=== PATIENT | female | born 1940 | race Caucasian/White ===

== ENCOUNTER 2017-06-01 15:34 | Inpatient (IN) | payer MEDICARE ==
[~2017-06-01] VITALS: Ht 157.5 cm; Wt 71.6 kg
[2017-06-01] MEDS ORDERED: ASPI-496 PO (15:54)
[2017-06-01 16:10] LABS: ASPARTATE AMINO TRANSFERASE 17 U/L (15-37); BLOOD UREA NITROGEN 20 mg/dL (7-18)
[2017-06-01 16:16] LABS: IS PT STATUS REG ER OR PRE ER? YES
[2017-06-01] MEDS ORDERED: ASPIRIN 325 MG TABLET PO STA (16:52)
[2017-06-01] MEDS ORDERED: ASPIRIN 325 MG TABLET ONE (17:06)
[2017-06-01] MEDS ORDERED: ENALAPRILAT 1.25 MG/ML, 2ML IVPush PRN ×2 (19:00→21:00)
[2017-06-01] MEDS ORDERED: BISACODYL 10 MG SUPP PR PRN (19:00)
[2017-06-01] MEDS ORDERED: ONDANSETRON 2MG/ML, 2ML IVPush PRN (19:00)
[2017-06-01] MEDS ORDERED: morphine SULFATE 10 MG/ML, 1ML IVPush PRN (19:00)
[2017-06-01] MEDS ORDERED: TEMAZEPAM 15 MG CAPSULE PO PRN (19:00)
[2017-06-01 19:15] VITALS: BP 176/102
[2017-06-01 20:00] VITALS: BP 176/102
[2017-06-01] MEDS ORDERED: ENALAPRILAT 1.25 MG/ML, 2ML ONE (20:26)
[2017-06-01 21:55] VITALS: BP 168/92
[2017-06-02] MEDS ORDERED: ENALAPRILAT 1.25 MG/ML, 2ML IVPush PRN (01:00)
[2017-06-02 02:00] VITALS: BP 167/99
[2017-06-02] MEDS: HEPARIN 5,000 UNITS/ML, 1ML SQ SCH ×3 (02:01→18:15)
[2017-06-02 02:30] LABS: PATH.CAST-FLAG NOT PRESENT; SPERM-FLAG NOT PRESENT; SRC-FLAG NOT PRESENT; XTAL-FLAG NOT PRESENT; YLC-FLAG NOT PRESENT
[2017-06-02 05:08] LABS: BLOOD UREA NITROGEN 19 mg/dL (7-18)
[2017-06-02] MEDS ORDERED: ASPIRIN 325 MG TABLET EC PO SCH (06:00)
[2017-06-02 07:07] VITALS: BP 144/86
[2017-06-02] MEDS: NICOTINE 14MG/24 HR PATCH.TD24 TD SCH (09:00)
[2017-06-02] MEDS: ASPIRIN 81 MG TABLET EC PO SCH (09:50)
[2017-06-02 12:10] VITALS: BP 147/85
[2017-06-02 20:00] VITALS: BP 161/88
[2017-06-02] MEDS: ATORVASTATIN 40 MG TABLET PO SCH (20:59)
[2017-06-03 02:00] VITALS: BP 172/96
[2017-06-03] MEDS: HEPARIN 5,000 UNITS/ML, 1ML SQ SCH ×3 (02:27→20:40)
[2017-06-03 08:09] VITALS: BP 157/100
[2017-06-03 08:13] VITALS: BP 170/98
[2017-06-03] MEDS: ASPIRIN 81 MG TABLET EC PO SCH (08:40)
[2017-06-03] MEDS: NICOTINE 14MG/24 HR PATCH.TD24 TD SCH (08:43)
[2017-06-03 14:01] VITALS: BP 152/82
[2017-06-03 19:15] VITALS: BP 169/106
[2017-06-03] MEDS: LISINOPRIL 5 MG TABLET PO SCH (20:40)
[2017-06-03] MEDS: ATORVASTATIN 40 MG TABLET PO SCH (20:40)
[2017-06-04 00:02] VITALS: BP 154/96
[2017-06-04 03:59] VITALS: BP 133/69
[2017-06-04] MEDS: HEPARIN 5,000 UNITS/ML, 1ML SQ SCH ×3 (05:08→20:37)
[2017-06-04] MEDS: ASPIRIN 81 MG TABLET EC PO SCH (05:08)
[2017-06-04] MEDS: LISINOPRIL 5 MG TABLET PO SCH ×2 (08:55→20:37)
[2017-06-04] MEDS: NICOTINE 14MG/24 HR PATCH.TD24 TD SCH (09:00)
[2017-06-04 09:54] VITALS: BP 143/84
[2017-06-04 13:57] VITALS: BP 125/74
[2017-06-04 18:59] VITALS: BP 167/81
[2017-06-04] MEDS: ATORVASTATIN 40 MG TABLET PO SCH (20:37)
[2017-06-05 00:40] VITALS: BP 148/76
[2017-06-05] MEDS: ASPIRIN 81 MG TABLET EC PO SCH (05:08)
[2017-06-05] MEDS: HEPARIN 5,000 UNITS/ML, 1ML SQ SCH ×2 (05:08→12:00)
[2017-06-05 06:43] VITALS: BP 126/83
[2017-06-05] MEDS: NICOTINE 14MG/24 HR PATCH.TD24 TD SCH (09:00)
[2017-06-05] MEDS: LISINOPRIL 5 MG TABLET PO SCH (09:30)
[2017-06-05] MEDS ORDERED: LISI2.5T PO (09:51)
[2017-06-05] MEDS ORDERED: ASPI-621 PO (09:51)
[2017-06-05] MEDS ORDERED: ATOR40TA78 PO (09:51)
[2017-06-05] MEDS ORDERED: NICO1PAT4 TD (09:51)
[2017-06-05 12:41] VITALS: BP 150/93
[2017-06-05] MEDS ORDERED: PNEUMOCOCCAL 23 VACCINE IM-VACC ONE (13:30)
[2017-06-05] MEDS ORDERED: LISINOPRIL 5 MG TABLET PO SCH (21:00)
== END 2017-06-05 14:26 | disposition home health service (06) | DRG 64 ==
LOC: ED 16:52 → EDIP 16:53 → ED 17:26 → 4WST 19:04
PROVIDERS: ADMIT Hospitalist; ATTEND Hospitalist
DX: I63.311 Cerebral infarction due to thrombosis of right middle cerebral artery (principal); N17.0 Acute kidney failure with tubular necrosis; R41.4 Neurologic neglect syndrome; I16.0 Hypertensive urgency; F17.200 Nicotine dependence, unspecified, uncomplicated; Z71.6 Tobacco abuse counseling; G51.0 Bell's palsy; I11.9 Hypertensive heart disease without heart failure; Z79.82 Long term (current) use of aspirin; Z91.14 Patient's other noncompliance with medication regimen; Z98.49 Cataract extraction status, unspecified eye; Z82.49 Family history of ischemic heart disease and other diseases of the circulatory system; Z79.02 Long term (current) use of antithrombotics/antiplatelets
CPT/HCPCS: 36415; 70450; 70551; 71010; 80048; 80053; 80061; 81001; 82962; 83036; 83735; 84100; 84439; 84443; 84484; 85025; 87086; 90732; 93005; 93306; 93880; 99285; J1644; 92523-GN